=== PATIENT | male | born 1965 | race Caucasian/White ===

== ENCOUNTER 2018-12-05 08:53 | Emergency (ER) | payer MEDICAID ==
[~2018-12-05] VITALS: Ht 190.5 cm; Wt 68.0 kg
[~2018-12-05 08:53] MED LIST: GABA-534 PO
[2018-12-05 09:00] VITALS: BP 138/85
[2018-12-05] MEDS ORDERED: dexamethasone sod phosphate 10mg/ml inj IM STA (10:05)
[2018-12-05] MEDS ORDERED: orphenadrine citrate 60mg/2ml inj. IM ONE (10:05)
[2018-12-05] MEDS ORDERED: ketorolac tromethamine 15mg/ml inj. IM ONE (10:05)
[2018-12-05] MEDS ORDERED: IBUP-1985 PO (10:11)
--- NOTE | 2018-12-05 11:00 | NUR ---
pt reports some improvement [email or web address] pain after medication. States he can feel it kicking in.
== END 2018-12-05 11:14 | disposition home or self-care (01) ==
LOC: ER 08:54
DX: M32.9 Systemic lupus erythematosus, unspecified (principal); M25.511 Pain in right shoulder; Z79.899 Other long term (current) drug therapy
CPT/HCPCS: 96372; 99283; J1100; J1885; J2360

== ENCOUNTER 2018-12-09 09:02 | Emergency (ER) | payer MEDICAID ==
[~2018-12-09] VITALS: Ht 190.5 cm; Wt 84.1 kg
[~2018-12-09 09:02] MED LIST changes: +IBUP-1985 PO
[2018-12-09 09:10] VITALS: BP 126/73
[2018-12-09] MEDS ORDERED: METH4TAB81 PO (10:11)
[2018-12-09] MEDS ORDERED: NAPR500T6 PO (10:11)
[2018-12-09] MEDS ORDERED: TRAM50TA2 PO (10:11)
== END 2018-12-09 10:33 | disposition home or self-care (01) ==
LOC: ER 09:03
DX: M25.511 Pain in right shoulder (principal); Z79.899 Other long term (current) drug therapy
CPT/HCPCS: 73030; 99283